=== PATIENT | male | born 1980 | race Caucasian/White ===

== ENCOUNTER → 2020-12-13 | Outpatient (CLI) | payer OTHER | LOC: HEART CORB 12:28 | DX: I50.30 Unspecified diastolic (congestive) heart failure (principal); R07.2 Precordial pain; I08.1 Rheumatic disorders of both mitral and tricuspid valves | CPT/HCPCS: 93306 ==

== ENCOUNTER → 2021-01-15 | Outpatient (CLI) | payer OTHER | LOC: HEART CORB 01-10 09:30 | DX: I50.32 Chronic diastolic (congestive) heart failure (principal); R07.2 Precordial pain | CPT/HCPCS: 78452; A9502; J2785 ==